=== PATIENT | male | born 1990 | race Caucasian/White ===

== ENCOUNTER → 2025-02-01 08:09 | Outpatient (REF) | payer OTHER, SELFPAY | LOC: MRI 3T 08:09 | PROVIDERS: ATTENDING PHYSICIAN Student in an Organized Health Care Education/Training Program | DX: M54.12 Radiculopathy, cervical region (principal); Z87.828 Personal history of other (healed) physical injury and trauma; M75.21 Bicipital tendinitis, right shoulder | CPT/HCPCS: 72141 ==

== ENCOUNTER → 2025-03-09 10:21 | Outpatient (REF) | payer OTHER, SELFPAY | LOC: MRI 3T 10:21 | PROVIDERS: ATTENDING PHYSICIAN Physician Assistant | DX: M54.12 Radiculopathy, cervical region (principal); R93.89 Abnormal findings on diagnostic imaging of other specified body structures; M48.02 Spinal stenosis, cervical region | CPT/HCPCS: 72156; A9575 ==